=== PATIENT | male | born 1980 | race Caucasian/White ===

== ENCOUNTER → 2017-05-18 | Outpatient (CLI) | payer BC, OTHER ==
[~2017-05-18] MED LIST: ALBUAER INH; MULTTAB58 PO
== END | disposition home or self-care (01) ==
LOC: C.RDSM 16:26
PROVIDERS: ATTEND Orthopaedic Surgery Sports Medicine
DX: S89.90XA Unspecified injury of unspecified lower leg, initial encounter (principal); X58.XXXA Exposure to other specified factors, initial encounter

== ENCOUNTER → 2017-05-24 | Outpatient (CLI) | payer OTHER ==
--- NOTE | 2017-05-24 10:41 | DIAGNOSTIC IMAGING REPORT ---
R LOWER EXT JOINT WITHOUT CLINICAL HISTORY: 36 years-old Male with RT KNEE ACL SPRAIN. Acute right knee pain and swelling status post twisting injury. Pain is most pronounced posteriorly. Positive Yenny sign. COMPARISON: Right knee radiographs 05/18/2017 TECHNIQUE: Multiplanar, multisequence MRI of the right knee was performed without intravenous contrast. FINDINGS: MENISCI: There is intermediate T2 signal of the posterior junction and posterior horn medial meniscus without discrete tear identified suggesting meniscal degeneration. There is mild blunting and irregularity with intermediate T2 signal of the free edge lateral meniscal body nicely seen on image 15 series 6 with additional intermediate T2 signal of the posterior junction lateral meniscus seen on image 6 series 9. No displaced fragment or parameniscal cyst CRUCIATE LIGAMENTS: The posterior cruciate ligament is normal in signal, morphology and course. The anterior crucial ligament is diminutive in size, notably the posterior lateral fibers adjacent to the femoral attachment site which appears somewhat indistinct and irregular. No significant associated soft tissue or bone marrow edema to suggest acute tear. COLLATERAL LIGAMENTS: The popliteus tendon, biceps femoris tendon, fibular collateral ligament and iliotibial band are intact. The superficial and deep components of the medial collateral ligament are intact. EXTENSOR MECHANISM: The quadriceps and patellar tendons are intact. The medial and lateral patellar retinacula are intact. KNEE JOINT: Trace joint effusion. There is no focal cartilage or osteochondral abnormality. BONE MARROW: The bone marrow signal is age appropriate. No fracture, marrow edema, or marrow replacing process. SOFT TISSUES: The periarticular soft tissues are normal. Trace Hansen's cyst. IMPRESSION: 1. The posterior lateral bundle fibers of the anterior cruciate ligament near the femoral attachment site appear diminutive in size, indistinct and slightly irregular without associated soft tissue or bone marrow edema suggesting possible chronic partial tear. No acute full-thickness ACL tear identified. 2. Mild blunting and irregularity of the free edge lateral meniscal body with intermediate T2 signal of the posterior junction lateral meniscus as above are suspicious for small tears without evidence of displaced fragment or parameniscal cyst. 3. Trace joint effusion and Hansen's cyst. The above report was generated using voice recognition software. It may contain grammatical, syntax or spelling errors. Electronically signed by: Greg Coe M.D. 05/24/2017 10:40 AM Dictated Date/Time: 05/24/2017 9:27 AM
== END | disposition home or self-care (01) ==
LOC: C.MRI 08:26
PROVIDERS: ATTEND Orthopaedic Surgery Sports Medicine
DX: S83.519A Sprain of anterior cruciate ligament of unspecified knee, initial encounter (principal); X58.XXXA Exposure to other specified factors, initial encounter